=== PATIENT | female | born 1955 | race Caucasian/White ===

== ENCOUNTER 2025-09-19 11:40 | Emergency (ER) | payer OTHER ==
[~2025-09-19] VITALS: Ht 162.6 cm; Wt 61.2 kg
[2025-09-19] MEDS ORDERED: 0.9 % SODIUM CHLORIDE 1,000 ML IV STA (13:27)
[2025-09-19] MEDS ORDERED: KETOROLAC TROMETHAMINE 30 MG VIAL IU ONE (13:30)
[2025-09-19] MEDS ORDERED: MAGNESIUM HYDROXIDE 400 MG/5 ML ML PO ONE (13:30)
[2025-09-19] MEDS ORDERED: FAMOTIDINE/PF 20 MG/2 ML VIAL IV ONE (13:30)
[2025-09-19] MEDS ORDERED: MINERAL OIL 30 ML BLIST.PACK PO ONE (13:30)
[2025-09-19] MEDS ORDERED: LACTULOSE 10 G/15 ML ML PO ONE (13:30)
[2025-09-19] MEDS ORDERED: ONDANSETRON HCL 2 MG/ML VIAL IV ONE (13:30)
[2025-09-19 16:26] LABS: BASO % 0.4 % (0.1-1.2); EOS # 0.07 (0.04-0.54); EOS % 0.5 % (0.7-7.0); LYMPH # 2.42 (1.18-3.74); LYMPH % 15.9 % (19.3-53.1); MEAN PLATELET VOLUME 9.40 fl (9.4-12.4); MONO # 0.95 (0.24-0.82); MONO % 6.3 % (4.7-12.5); NEUT # 11.64 (1.56-6.13); NEUT % 76.6 % (34.0-71.1); RED CELL DISTRIBUTION WIDTH 11.9 % (11.6-14.4)
[2025-09-19 16:58] LABS: INR 0.98
[2025-09-19 17:09] LABS: ALT/SGPT 25.0 U/L (12-78); AST/SGOT 11.0 U/L (15-37); BILIRUBIN TOTAL 1.09 mg/dL (0.3-1.2); BILIRUBIN,CONJUGATED 0.24 mg/dL (0.0-0.2); BUN CREA RATIO 17.0 (7.0-25.0); CREATININE SERUM 0.77 mg/dL (0.55-1.02); GFR 74.55; GLUCOSE FASTING 95.0 mg/dL (65-100); OSMOLALITY SERUM 279.0 MOSM/KG (275-295)
[2025-09-19 19:05] LABS: URINE APPEARANCE Cloudy; URINE BILIRRUBIN Small (NEGATIVE); URINE BLOOD Negative; URINE COLOR Dark Yellow; URINE GLUCOSE Negative (NEGATIVE); URINE KETONE 15 (NEGATIVE); URINE LEUKOCYTE Moderate; URINE NITRATE Negative; URINE PROTEIN 30 (NEGATIVE); URINE UROBILINOGEN 1.0 E.U./dl
[2025-09-19 19:09] LABS: URINE CAST 4.24 uL (0.0-1.40); URINE EPITHELIAL CELLS 101.5 uL (0.0-38.8); URINE RBC 19.4 uL (0.0-20.8); URINE WBC 1209.2 uL (0.0-23.2)
[2025-09-19 19:50] LABS: URINE BACTERIA > 9821.5 uL (0.0-1933)
[2025-09-19 19:58] LABS: TYPE CELLS SQUAMOUS; URINE MUCUS HEAVY
[2025-09-19] MEDS ORDERED: CIPROFLOXACIN IN 5 % DEXTROSE 400 MG/200 ML PIGGYBAG IV ONE (21:30)
[2025-09-19] MEDS ORDERED: METRONIDAZOLE/SODIUM CHLORIDE 500 MG/100 ML PIGGYBACK IV ONE (21:30)
[2025-09-19] MEDS ORDERED: DICYCLOMINE HCL 10 MG CAPSULE PO ONE (22:45)
[2025-09-19] MEDS ORDERED: MORPHINE SULFATE 2 MG/ML SYRINGE IV ONE (22:45)
[2025-09-19] MEDS ORDERED: TRAMADOL HCL 50 MG TABLET PO ONE (23:00)
[2025-09-20] MEDS ORDERED: 8 HOUR650 MG PO (00:15)
[2025-09-20] MEDS ORDERED: METRONIDAZOLE500 MG PO (00:15)
[2025-09-20] MEDS ORDERED: DICY20TA PO (00:15)
[2025-09-20] MEDS ORDERED: CIPRO500 MG PO (00:15)
== END 2025-09-20 00:54 | disposition home or self-care (01) ==
LOC: ER 11:41
PROVIDERS: General Practice
DX: K57.92 Diverticulitis of intestine, part unspecified, without perforation or abscess without bleeding (principal); K59.00 Constipation, unspecified; R10.9 Unspecified abdominal pain
CPT/HCPCS: 36415; 74177; Q9965